=== PATIENT | male | born 2005 | race Caucasian/White ===

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

== ENCOUNTER → 2023-06-19 | Emergency (ER) | payer OTHER ==
[~2023-06-19] VITALS: Ht 165.1 cm; Wt 52.2 kg
[~2023-06-19] MED LIST changes: +CLEOCIN HCL300 MG PO; +INTESTINEX680 M1 PO; +PEPCID AC20 MG PO
[2023-06-19 21:27] LABS: URINE APPEARANCE Clear; URINE BILIRRUBIN Negative (NEGATIVE); URINE BLOOD Negative; URINE COLOR Yellow; URINE GLUCOSE Negative (NEGATIVE); URINE LEUKOCYTE Negative; URINE NITRATE Negative; URINE PROTEIN Negative (NEGATIVE)
[2023-06-19 21:31] LABS: URINE RBC 4.1 uL (0.0-20.8)
[2023-06-19 21:35] LABS: URINE BACTERIA 2.5 uL (0.0-1933); URINE EPITHELIAL CELLS 0.4 uL (0.0-38.8); URINE WBC 0.2 uL (0.0-23.2)
[2023-06-19 22:29] LABS: HEMATOCRIT 42.2 % (39.0-48.0); HEMOGLOBIN 14.8 g/dL (13-16.00); MEAN CELL VOLUME 92.4 fL (80.0-100.00); MEAN CORPUSCULAR HEMOGLOBIN 32.3 pg (27.00-32.0); PLATELET COUNT 258 K/uL (150-450); RED BLOOD COUNT 4.57 M/uL (4.00-6.00); RED CELL DISTRIBUTION WIDTH 12.9 % (11.5-14.5)
== END | disposition home or self-care (01) ==
LOC: ER 19:10 → EMR PED 19:25 → ER 19:25
PROVIDERS: Emergency Medicine
DX: R10.9 Unspecified abdominal pain (principal)

== ENCOUNTER 2024-02-11 18:10 | Emergency (ER) | payer OTHER ==
[~2024-02-11] VITALS: Ht 165.1 cm; Wt 51.7 kg
[2024-02-11] MEDS ORDERED: DEXAMETHASONE SODIUM PHOSPHATE 4 MG/ML VIAL IM STA (19:54)
[2024-02-11] MEDS ORDERED: GUAIFEN/DEXTROMETHORPHAN/PE 10 ML BLIST.PACK PO STA (21:13)
[2024-02-11] MEDS ORDERED: ALBUTEROL SULFATE 3 ML/2.5 MG AMPUL.NEB IH STA (21:14)
[2024-02-11] MEDS ORDERED: DEXAMETHASONE SODIUM PHOSPHATE 4 MG/ML VIAL ONE (22:12)
[2024-02-11] MEDS ORDERED: GUAIFEN/DEXTROMETHORPHAN/PE 10 ML BLIST.PACK PO ONE (22:43)
[2024-02-11] MEDS ORDERED: ALBUTEROL SULFATE 3 ML/2.5 MG AMPUL.NEB IH ONE (23:30)
[2024-02-12] MEDS ORDERED: BUDESONIDE0.5 MG/2 M IH (01:38)
[2024-02-12] MEDS ORDERED: ALBUTEROL2.5 MG/3 M IH (01:38)
[2024-02-12] MEDS ORDERED: ZYNCOF 20-400120 ML PO (01:38)
== END 2024-02-12 01:53 ==
LOC: ER 18:11 → EMR PED 18:39
DX: U07.1 COVID-19 (principal); J40 Bronchitis, not specified as acute or chronic; J32.9 Chronic sinusitis, unspecified; R05.9 Cough, unspecified

== ENCOUNTER 2025-05-22 13:43 | Emergency (ER) | payer OTHER ==
[~2025-05-22] VITALS: Ht 157.5 cm; Wt 48.1 kg
[~2025-05-22 13:43] MED LIST changes: +ALBUTEROL2.5 MG/3 M IH; +BUDESONIDE0.5 MG/2 M IH; +ZYNCOF 20-400120 ML PO
[2025-05-22] MEDS ORDERED: KETOROLAC TROMETHAMINE 30 MG VIAL IV ONE (15:15)
[2025-05-22] MEDS ORDERED: ONDANSETRON HCL 4 MG in 0.9 % SODIUM CHLORIDE 50 ML IV ONE (15:15)
[2025-05-22] MEDS ORDERED: FAMOtidine 10 MG/ML (4ML VIAL) IV PUSH ONE (15:15)
[2025-05-22] MEDS ORDERED: 0.9 % SODIUM CHLORIDE 1,000 ML IV SCH (15:15)
[2025-05-22] MEDS ORDERED: 0.9 % SODIUM CHLORIDE 1,000 ML IV ONE (15:15)
[2025-05-22] MEDS ORDERED: KETOROLAC TROMETHAMINE 30 MG VIAL ONE (15:44)
[2025-05-22] MEDS ORDERED: ONDANSETRON HCL 2 MG/ML VIAL ONE (15:44)
[2025-05-22 16:58] LABS: BASO % 0.2 % (0.1-1.2); EOS # 0.00 (0.04-0.54); EOS % 0.0 % (0.7-7.0); LYMPH # 1.31 (1.18-3.74); LYMPH % 10.3 % (19.3-53.1); MEAN PLATELET VOLUME 9.30 fl (9.4-12.4); MONO # 0.44 (0.24-0.82); MONO % 3.5 % (4.7-12.5); NEUT # 10.92 (1.56-6.13); NEUT % 85.8 % (34.0-71.1); RED CELL DISTRIBUTION WIDTH 11.8 % (11.6-14.4)
[2025-05-22 17:19] LABS: INR 1.02
[2025-05-22 17:29] LABS: ALT/SGPT 30.0 U/L (12-78); AST/SGOT 26.0 U/L (15-37); BILIRUBIN TOTAL 1.37 mg/dL (0.3-1.2); BUN CREA RATIO 17.0 (7.0-25.0); CREATININE SERUM 0.9 mg/dL (0.70-1.30); GFR 106.52; GLOBULINA 3.7 G/DL (2.4-3.5); GLUCOSE FASTING 94.0 mg/dL (65-100); OSMOLALITY SERUM 278.0 MOSM/KG (275-295); PHOSPHOKINASE CREATININE 388.0 U/L (39-308)
== END 2025-05-23 01:09 | disposition home or self-care (01) ==
LOC: ER 13:43
PROVIDERS: General Practice
DX: F10.10 Alcohol abuse, uncomplicated (principal); R51.9 Headache, unspecified